=== PATIENT | female | born 1940 | race Caucasian/White ===

== ENCOUNTER 2019-08-29 13:49 | Inpatient (IN) | payer OTHER ==
[~2019-08-29] VITALS: Ht 154.9 cm; Wt 45.1 kg
[2019-08-29 13:57] VITALS: BP 153/78
[2019-08-29 14:44] LABS: HEMATOCRIT 40.7 % (37.0-47.0); MEAN CELL VOLUME 93.3 fl (81.0-99.0); MEAN CORPUSCULAR HGB 29.8 pg (27.0-31.0); MEAN CORPUSCULAR HGB CONC 31.9 g/dl (33.0-37.0); MEAN PLATELET VOLUME 9.7 fl (9.6-12.3); PLATELET COUNT AUTOMATED 251 10*3/uL (130-400); RED BLOOD COUNT 4.36 10*6/uL (4.10-5.10); RED CELL DISTRI WIDTH 13.2 % (0-14.5); WHITE BLOOD COUNT 13.3 10*3/uL (4.8-10.8)
[2019-08-29 14:55] LABS: ACT PARTIAL THROMBO TIME 29.6 SECONDS (20.0-32.1); INTERNATIONAL NORM RATIO 1.1 (2.0-3.5)
[2019-08-29 15:01] LABS: ALBUMIN 2.8 gm/dl (3.1-4.5); ALKALINE PHOSPHATASE 92 U/L (45-117); BUN 42 mg/dl (7-24); CHLORIDE 105 mmol/L (98-107); CREATININE 1.19 mg/dL (0.55-1.02); LIPASE 121 U/L (73-393); POTASSIUM 3.7 mmol/L (3.5-5.1); SGOT/AST 11 IU/L (3-35); SGPT/ALT 16 U/L (12-78); SODIUM 143 mmol/L (136-145); TOTAL PROTEIN 7.7 gm/dL (6.4-8.2); TROPONIN I < 0.015 ng/ml (<0.045)
[2019-08-29 15:09] LABS: PLATELET SUFFICIENCY NORMAL (NORMAL); TOTAL CELLS COUNTED 100 #CELLS
--- NOTE | 2019-08-29 15:20 | NUR ---
POX 90%. SOLUMEDROL GIVEN WITHOUT INCIDENT.
[2019-08-29 16:59] VITALS: BP 145/71
[2019-08-29 17:35] VITALS: BP 149/77
[2019-08-29] MEDS ORDERED: AMLODIPINE BESY10 MG PO (18:11)
[2019-08-29] MEDS ORDERED: PROAIR HFA8.5 GM INH (18:11)
[2019-08-29] MEDS ORDERED: BAYER ASPIRIN C81 MG PO (18:12)
[2019-08-29] MEDS ORDERED: BENAZEPRIL20 MG PO (18:12)
[2019-08-29] MEDS ORDERED: VENTOLIN 02.5 MG/3 M INH (18:13)
--- NOTE | 2019-08-29 18:24 | NUR ---
PT NOW ON ROOM AIR TO SEE EFFECT ON PT PULSE OX PT O2 SAT LEVELS DOC IN PT NOTES ON DIFFERENT O2 LEVELS PT WAS ADVISED TO USE CALL LIGHT IF AT ANY TIME PT BECOMES SHORT OF BREATH OR ANY OTHER SYMPTOMS ARISE
--- NOTE | 2019-08-29 18:28 | NUR ---
PT PULSE OX TO 85% ON ROOM AIR IN LESS THAT 2 MIN PT PLACED BACK ON O2 NC AT 2LPM
[2019-08-29 19:21] VITALS: BP 130/60
[2019-08-29 20:46] VITALS: BP 156/65
--- NOTE | 2019-08-29 20:46 | NUR ---
A 79, admitted to , under the services of LUCIA Gao DO with a diagnosis of RESPIRATORY FAILURE. Chief complaint is SOB. Patient arrived via stretcher from ER. Initial assessment completed. Vital signs taken and recorded. LUCIA GAO DO notified of admission to the unit. Orders received. See assessment for past medical history, medications and allergies. Patient and/or family oriented to unit. [facility] reviewed. Clothing/patient valuable form completed. MIKAYLA HILL
[2019-08-29] MEDS ORDERED: ZYRTEC10 M3 PO (21:28)
--- NOTE | 2019-08-29 21:31 | NUR ---
NOTIFIED OF MED REC UPDATES AND THAT PATIENT IS REFUSING TO WEAR MAMMOGRAPHER.
--- NOTE | 2019-08-29 21:38 | NUR ---
PATIENT REFUSED FLU SHOT.
--- NOTE | 2019-08-29 23:00 | NUR ---
PT REFUSING NASAL SWAB FOR INFLUENZA AT THIS TIME.
[2019-08-30] VITALS: BP 142/32; BP 142/62
--- NOTE | 2019-08-30 | NUR ---
AWARE PT REFUSING NASAL SWAB FOR INFLUENZA.
[2019-08-30 01:05] LABS: BILIRUBIN NEGATIVE (NEGATIVE); BLOOD 1+ (NEGATIVE); CLARITY CLEAR (CLEAR); COLOR YELLOW (YELLOW); GLUCOSE NEGATIVE (NEGATIVE); KETONE NEGATIVE (NEGATIVE); LEUKO ESTERASE NEGATIVE (NEGATIVE); NITRITE NEGATIVE (NEGATIVE); SPECIFIC GRAVITY >= 1.030 (1.005-1.030); UROBILINOGEN 0.2 E.U./dl (0.2-1.0)
[2019-08-30 01:19] LABS: BACTERIA 2+; FINE GRANULAR CAST 0-2; HYALINE CAST 0-2; URIC ACID CRYSTALS 1+
--- NOTE | 2019-08-30 03:37 | NUR ---
24 HR chart check completed.
[2019-08-30 06:40] LABS: HEMATOCRIT 36.5 % (37.0-47.0); HEMOGLOBIN 11.6 g/dl (12.0-16.0); MEAN CELL VOLUME 95.3 fl (81.0-99.0); MEAN CORPUSCULAR HGB 30.3 pg (27.0-31.0); MEAN CORPUSCULAR HGB CONC 31.8 g/dl (33.0-37.0); MEAN PLATELET VOLUME 10.3 fl (9.6-12.3); PLATELET COUNT AUTOMATED 224 10*3/uL (130-400); RED BLOOD COUNT 3.83 10*6/uL (4.10-5.10); RED CELL DISTRI WIDTH 13.4 % (0-14.5); WHITE BLOOD COUNT 11.2 10*3/uL (4.8-10.8)
[2019-08-30 06:59] LABS: BUN 41 mg/dl (7-24); CHLORIDE 110 mmol/L (98-107); CREATININE 0.98 mg/dL (0.55-1.02); HDL CHOLESTEROL 30 mg/dl (40-60); PHOSPHOROUS 3.5 mg/dL (2.5-4.9); POTASSIUM 3.6 mmol/L (3.5-5.1); SODIUM 144 mmol/L (136-145)
[2019-08-30 07:08] LABS: CHOLESTEROL 105 mg/dL (<200); FREE T4 1.32 ng/dl (0.76-1.46); LDL CHOLESTEROL 59 mg/dL (9-159); THYROID STIM HORMONE (HS) 0.349 uIU/ml (0.358-4.75); TRIGLYCERIDES 80 mg/dl (<150); VLDL CHOLESTEROL 16 mg/dL (6-40)
[2019-08-30 07:12] LABS: PLATELET SUFFICIENCY NORMAL (NORMAL); TOTAL CELLS COUNTED 100 #CELLS; TOXIC GRANULATION SLIGHT
[2019-08-30 07:27] LABS: VITAMIN D, 25-HYDROXY 49.4 ng/mL (30-100)
--- NOTE | 2019-08-30 07:34 | NUR ---
24 HR chart check completed.
[2019-08-30 08:00] VITALS: BP 135/61
--- NOTE | 2019-08-30 08:10 | NUR ---
DR JAEGER AND THIAGO HERE TO ASSESS PATIENT AND DISCUSS PLAN OF CARE
--- NOTE | 2019-08-30 09:00 | NUR ---
SITTING IN BED WITH NO ACUTE DISTRESS NOTED. RESPIRATIONS EASY. LUNGS DIMINISHED, CLEAR. PULSE OX 94% 3.5L, TITRATED TO 2L. LOOSE NON-PROD COUGH. OFFERED AND EDUCATED REGARDING TEDS, DECLINED. ALSO CONTINUES TO REFUSE CASINO SLOT SUPERVISOR D/T "MY INSURANCE WON'T COVER." CALL LIGHT WITHIN REACH. NO VOICED COMPLAINTS
--- NOTE | 2019-08-30 09:16 | NUR ---
Patient resides at home with her . Pt is independent with ADLs. She has a nebulizer at home. Denies having home O2. Pt has never had the need for VNA or SNF. Plan is to return home with no needs.
--- NOTE | 2019-08-30 10:00 | NUR ---
PULSE OX 91% 2L. DESAT 78% RA UPON AMBULATING TO BR. RETURNED TO BED AND O2 REAPPLIED 2L, 90%
--- NOTE | 2019-08-30 11:00 | NUR ---
DR DAS CONTACTED AT PATIENT'S REQUEST REGARDING HOME MEDS. PATIENT TAKES BENZAPRIL, NOT ORDERED. DR DAS TO REORDER. ALSO INFORMED PATIENT PULSE OX 91% 2L, DESATED TO 78% RA UPON AMBULATING TO BR. O2 REAPPLIED 2L, PULSE OX 90%
[2019-08-30 12:00] VITALS: BP 142/66
--- NOTE | 2019-08-30 15:00 | NUR ---
HOME O2 EVALUATION SPO2 @ REST ON RA - 87% BP - 135/56 SPO2 @ REST ON 3LNC - 93% SPO2 WHILE AMBULATING ON 3LNC - 87-88% SPO2 WHILE AMBULATING ON 4LNC - 89%-92% SPO2 @ REST ON 3LNC POST AMBULATION 93%-94% BP - 135/86
[2019-08-30 16:00] VITALS: BP 134/55
--- NOTE | 2019-08-30 16:30 | NUR ---
RESTING IN BED. O2 PRESENT AT BEDSIDE BUT NOT IN USE, PULSE OX 89% RA. O2 REAPPLIED AT 3L, PULSE OX 94%. PATIENT ENCOURAGED TO LEAVE O2 IN USE. AGAIN EDUCATED REGARDING REPAIR MANAGER, CONTINUES TO DECLINE STATING "THERE'S NOTHING WRONG WITH MY HEART."
--- NOTE | 2019-08-30 18:00 | NUR ---
RESTING IN BED WATCHING TV WITH O2 IN USE. CALL LIGHT WITHIN REACH. NO VOICED COMPLAINTS
--- NOTE | 2019-08-30 19:15 | NUR ---
24 HOUR CHART CHECK COMPLETE
[2019-08-30 20:00] VITALS: BP 137/68
--- NOTE | 2019-08-30 20:10 | NUR ---
PATIENT ASSESSMENT COMPLETED AT THIS TIME WITHOUT INCIDENT. PATIENT DENIES ANY CHEST PAIN/PRESSURE, SHORTNESS OF BREATH OR GENERALIZED PAIN AT THIS TIME. PATIENT CURRENTLY ON NC 3LPM OXYGEN, EDUCATED PATIENT ON PURSED LIP BREATHING TECHNIQUES, IMPORTANCE OF CONTINUED USE. PATIENT CONTINUES REFUSING AGRICULTURIST STATING "MY HEART ISN'T WHY I'M HERE AND MY INSURANCE WON'T PAY FOR IT". PATIENT ALSO CONTINUES REFUSING TO BE NASAL SWABBED FOR THE FLU VIRUS. PHYSICIANS AWARE. PATIENT REQUESTING THAT SHE BE GIVEN ZYRTEC BEFORE BED SHE TAKES IT AT HOME TO HELP HER SLEEP,
--- NOTE | 2019-08-30 20:40 | NUR ---
PATIENT REQUESTING ZYRTEC AT HOUR OF SLEEP, DR MALIK LEON WITH ONE TIME DOSE, SEE EMAR.
[2019-08-31] VITALS: BP 128/69
[2019-08-31 07:01] LABS: BASO % 0.4 % (0.0-1.0); HEMATOCRIT 35.1 % (37.0-47.0); HEMOGLOBIN 10.9 g/dl (12.0-16.0); LYMPH # 0.5 10*3/uL (1.3-4.4); LYMPH % 6.5 % (27.0-41.0); MEAN CELL VOLUME 94.9 fl (81.0-99.0); MEAN CORPUSCULAR HGB 29.5 pg (27.0-31.0); MEAN CORPUSCULAR HGB CONC 31.1 g/dl (33.0-37.0); MEAN PLATELET VOLUME 10.8 fl (9.6-12.3); MONO # 0.4 10*3/uL (0.1-1.0); MONO % 4.7 % (3.0-9.0); NEUT # 6.5 10*3/uL (2.3-7.9); NEUT % 86.1 % (47.0-73.0); PLATELET COUNT AUTOMATED 164 10*3/uL (130-400); RED CELL DISTRI WIDTH 13.3 % (0-14.5); WHITE BLOOD COUNT 7.5 10*3/uL (4.8-10.8)
[2019-08-31 07:32] LABS: CREATININE 1.09 mg/dL (0.55-1.02); POTASSIUM 3.3 mmol/L (3.5-5.1)
[2019-08-31 08:00] VITALS: BP 119/68
--- NOTE | 2019-08-31 09:00 | NUR ---
Skirt Maker in to talk to patient. Patient states lives at home with minerva. There are few steps in the home. Physician: hilario giang [facility]acy: [facility] Home health services: none Patient's level of ADLs: INDEPENDENT Patient has working utilities: all working DME: none Follow-up physician's appointment after d/c: will be made by hospitalist nurse director upon discharge Does patient want to access PORTAL?: no Discharge plan discussed with patient, she states she lives at home with her , she is independent in adls and ambulation, she states she will return home when medically stable, patient stated she would need home oxygen when discharged and did not want it, educated her on the purpose of oxygen and educated her that she may not need it for very long, discussed with her the adverse outcome that can happen if she did not wear the home oxygen, she stated respiratory was working with her insurance company to get the home oxygen discussed with her VNA and educated her on the services they provide and she declined any home services, case management will follow. GERARDO MONTENEGRO
[2019-08-31] MEDS ORDERED: PREDNISONE10 MG PO (11:41)
[2019-08-31] MEDS ORDERED: ZITHROMAX500 MG PO (11:41)
--- NOTE | 2019-08-31 12:09 | NUR ---
PT DISCHARGED HOME AT THIS TIME. PORATBLE O2 TANK HOOKED UP AND FUNCTIONING. PRESCRIPTIONS AND FOLLOW UP CARE DISCUSSED. VSS. PT TRANPORTED TO PRIVATE CAR VIA WHEELCHAIR.
== END 2019-08-31 12:09 | disposition home or self-care (01) | DRG 871 ==
LOC: ED 13:49 → 4E 20:29 → EDHOLD 20:29 → 4E 20:31
PROVIDERS: Internal Medicine; Nurse Practitioner Family; ADMIT Family Medicine
DX: A41.9 Sepsis, unspecified organism (principal); J18.9 Pneumonia, unspecified organism; N17.0 Acute kidney failure with tubular necrosis; J96.21 Acute and chronic respiratory failure with hypoxia; J45.909 Unspecified asthma, uncomplicated; R65.20 Severe sepsis without septic shock; I25.10 Atherosclerotic heart disease of native coronary artery without angina pectoris; Z91.041 Radiographic dye allergy status; Z79.899 Other long term (current) drug therapy; Z79.82 Long term (current) use of aspirin